=== PATIENT | male | born 1995 | race Caucasian/White ===

== ENCOUNTER 2020-09-22 07:01 | Emergency (ER) | payer MEDICAID ==
[~2020-09-22] VITALS: Ht 170.2 cm; Wt 88.0 kg
[2020-09-22 07:11] VITALS: Ht 170.2 cm; Wt 88.0 kg
[2020-09-22 07:41] VITALS: BP 118/77
== END 2020-09-22 07:40 | disposition home or self-care (01) ==
LOC: ED 07:01
DX: S02.5XXA Fracture of tooth (traumatic), initial encounter for closed fracture (principal); Z88.2 Allergy status to sulfonamides; X58.XXXA Exposure to other specified factors, initial encounter; Y93.89 Activity, other specified; Y92.89 Other specified places as the place of occurrence of the external cause; Y99.8 Other external cause status